=== PATIENT | male | born 1985 | race African-American/Black ===

== ENCOUNTER → 2022-10-13 | Outpatient (CLI) | payer OTHER ==
[~2022-10-13] MED LIST: PROHANCE 279.3MG/ML 15ML VIAL As Ordered ONE; PROHANCE 279.3MG/ML 5ML VIAL As Ordered ONE
== END ==
LOC: M RAD 08:32
PROVIDERS: ATTEND Physician Assistant
DX: M25.562 Pain in left knee (principal)

== ENCOUNTER → 2023-02-09 | Outpatient (CLI) | payer OTHER ==
[~2023-02-09] MED LIST changes: +ISOVUE-370 76% 100ML VIAL As Ordered ONE; -PROHANCE 279.3MG/ML 15ML VIAL As Ordered ONE; -PROHANCE 279.3MG/ML 5ML VIAL As Ordered ONE
== END ==
LOC: M RAD 07:48
PROVIDERS: ATTEND Physician Assistant
DX: M25.562 Pain in left knee (principal)
CPT/HCPCS: 73701; Q9967